=== PATIENT | male | born 1995 | race Caucasian/White ===

== ENCOUNTER 2016-03-03 17:32 | Emergency (ER) | payer BC ==
[~2016-03-03] VITALS: Ht 185.4 cm; Wt 74.0 kg
[2016-03-03 17:42] VITALS: TEMP 37.1; Ht 185.4 cm; Wt 74.0 kg
[2016-03-03 18:00] VITALS: O2SAT 98
--- NOTE | 2016-03-03 18:51 | DIAGNOSTIC IMAGING REPORT ---
CT OF THE HEAD WITHOUT CONTRAST CLINICAL HISTORY: Fall. COMPARISON STUDY: No previous studies for comparison. CT DOSE: 1011.92 mGy.cm TECHNIQUE: Helical axial images of the head were obtained without IV contrast. Automated exposure control was utilized for the study. FINDINGS: No acute intracranial hemorrhage, midline shift or mass effect is present. Brain volume is normal. Ventricular system is normal. The basilar cisterns are patent. There are no extra-axial collections. Garcia-white differentiation is maintained. There is no calvarial fracture. IMPRESSION: 1. No acute intracranial findings. 2. No calvarial fracture. Electronically signed by: aJyesh Canales M.D. 03/03/2016 6:49 PM Dictated Date/Time: 03/03/2016 6:47 PM
--- NOTE | 2016-03-03 18:55 | DIAGNOSTIC IMAGING REPORT ---
CT OF THE CERVICAL SPINE WITHOUT CONTRAST CLINICAL HISTORY: Fall. COMPARISON STUDY: No previous studies for comparison. TECHNIQUE: Helical axial images of the cervical spine were obtained without IV contrast. Sagittal and coronal reconstructions were viewed. FINDINGS: Alignment of the cervical spine is anatomic. No acute fracture is identified. The craniocervical junction is intact. There is no prevertebral edema or pneumothorax within visualized portions of the lung apices. Facet joints are intact. IMPRESSION: No acute cervical spine fracture or subluxation. Electronically signed by: Jayesh Canales M.D. 03/03/2016 6:53 PM Dictated Date/Time: 03/03/2016 6:50 PM
[2016-03-03 19:18] LABS: BUN/CREATININE RATIO 11.3 (10-20); CREATININE 1.1 mg/dl (0.60-1.40)
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
[2016-03-04 02:00] VITALS: BP 138/95; PULSE 75; O2SAT 98
== END 2016-03-04 01:55 | disposition home or self-care (01) ==
LOC: C.EDA 17:35
DX: F10.129 Alcohol abuse with intoxication, unspecified (principal); S09.90XA Unspecified injury of head, initial encounter; T14.8 Other injury of unspecified body region; X58.XXXA Exposure to other specified factors, initial encounter